=== PATIENT | female | born 1980 | race Caucasian/White ===

== ENCOUNTER 2017-07-04 02:06 | Emergency (ER) | payer MEDICAID, OTHER ==
[~2017-07-04] VITALS: Ht 162.6 cm; Wt 65.0 kg
[~2017-07-04 02:06] MED LIST: CEPH250C PO; FIORTAB4 PO
[2017-07-04 02:21] VITALS: BP 125/82; PULSE 98; RESP 15; TEMP 97.5; O2SAT 97
--- NOTE | 2017-07-04 02:42 | PD ---
HPI Chief Complaint: Alcohol/Drug Intoxication Time Seen by Provider: 02:41 Travel History International Travel<30 days: No Contact w/Intl Traveler<30days: No Traveled to known affect area: No History of Present Illness HPI 36-year-old female brought to the emergency department under Ji act for evaluation. Patient has been drinking heavily with her this evening. Please were called to the home. Patient ended up being brought here from [facility] for evaluation of intoxication. Patient denies any trauma. Denies any pain. States she has been drinking heavily. She constantly asks when her is going to pick her up. She has no other symptoms to report. PFSH Past Medical History Medical History: Unable to Obtain Cardiovascular Problems: Yes (STATES HAD HEART PROBLEMS WHEN 20) Tetanus Vaccination: Unknown ?: Past Surgical History Surgical History: Unable to Obtain Social History Alcohol Use: Yes Tobacco Use: Yes (OCC) Substance Use: No Allergies-Medications (Allergen,Severity, Reaction): Coded Allergies: metoclopramide (Unverified Allergy, Severe, 11/04/16) Reported Meds & Prescriptions Reported Meds & Active Scripts Active Reported Keflex (Cephalexin Monohydrate) 250 Mg Cap 0 PO UNKNOWN DOSE Fioricet (Acetaminophen/Butalbital/Caffeine) Tab 1 Tab PO Q4HPRN FOR HEADACHE Review of Systems Except as stated in HPI: all other systems reviewed are Neg Physical Exam Exam Limitations: Intoxication Narrative GENERAL: Well-nourished, well-developed female patient, in no acute distress. Patient is clinically intoxicated with slurred speech and strong smell of alcohol on her breath. SKIN: Focused skin assessment warm/dry. HEAD: Normocephalic. EYES: No scleral icterus. No injection or drainage. NECK: Supple, trachea midline. No JVD or lymphadenopathy. CARDIOVASCULAR: Elevated rate and rhythm without murmurs, gallops, or rubs. RESPIRATORY: Breath sounds equal bilaterally. No accessory muscle use. GASTROINTESTINAL: Abdomen soft, non-tender, nondistended. MUSCULOSKELETAL: No cyanosis, or edema. BACK: Nontender without obvious deformity. No CVA tenderness. Moves all extremities. Data Data Last Documented VS Vital Signs Date Time Temp Pulse Resp B/P (MAP) Pulse Ox O2 Delivery O2 Flow Rate FiO2 18 02:21 97.5 98 15 125/82 (96) 97 MDM Medical Decision Making Medical Screen Exam Complete: Yes Emergency Medical Condition: Yes Medical Record Reviewed: Yes Differential Diagnosis Intoxication versus polysubstance abuse versus mood disorder Narrative Course 36-year-old female presents emergency department under Ji act. Patient is clinically intoxicated. She does admit to drinking large amount of alcohol this evening. She is awake. She is oriented 3. She has slurred speech and is unable to ambulate without significant difficulty due to her intoxication. Patient will be monitored until she is clinically sober at which time she will be discharged. Diagnosis Primary Impression: Alcohol intoxication Condition: Stable Sheila Reeves Jul 04, 2017 02:42
[2017-07-04 07:47] VITALS: BP 118/68
== END 2017-07-04 09:38 | disposition home or self-care (01) ==
LOC: NEDAMB 02:06
DX: F10.129 Alcohol abuse with intoxication, unspecified (principal); Z72.0 Tobacco use
CPT/HCPCS: 99282